=== PATIENT | male | born 1990 | race Caucasian/White ===

== ENCOUNTER 2021-05-28 21:46 | Emergency (ER) | payer MEDICAID, OTHER ==
[~2021-05-28] VITALS: Ht 180.3 cm; Wt 77.1 kg
[2021-05-28 21:50] VITALS: BP 147/87
[2021-05-29] MEDS ORDERED: ALBUTEROL SULF 2.5 MG/0.5ML(0.5%) NEB SOLN NEB ONE ×2 (04:00→04:15)
[2021-05-29] MEDS ORDERED: IPRATROPIUM BROM 0.5 MG/2.5ML INH SOL NEB ONE ×2 (04:00→04:15)
[2021-05-29] MEDS ORDERED: methylPREDNISolone SOD SUCC 125 MG/2 ML VL IM ONE (05:30)
[2021-05-29] MEDS ORDERED: PRED20TA2 PO (05:33)
[2021-05-29] MEDS ORDERED: CLIN300C8 PO (05:33)
[2021-05-29] MEDS ORDERED: ALBUAER3 IN (05:33)
== END 2021-05-29 05:51 | disposition home or self-care (01) ==
LOC: EDBD 21:46 → ER 21:49
DX: J45.901 Unspecified asthma with (acute) exacerbation (principal); S90.822A Blister (nonthermal), left foot, initial encounter; S90.821A Blister (nonthermal), right foot, initial encounter; X58.XXXA Exposure to other specified factors, initial encounter; Y93.89 Activity, other specified; Y92.89 Other specified places as the place of occurrence of the external cause; Y99.8 Other external cause status
CPT/HCPCS: 94640; 96372; 99283; J2930; J7644